=== PATIENT | female | born 2000 | race Caucasian/White ===

== ENCOUNTER 2022-10-01 10:30 | Outpatient (CLI) | payer OTHER ==
[2022-10-01 15:59] LABS: BILIRUBIN,URINE NEGATIVE (NEGATIVE); GLUCOSE, URINE (UA) NEGATIVE (NEGATIVE); KETONES,URINE (UA) NEGATIVE (NEGATIVE); LEUKOCYTE ESTERASE, URINE NEGATIVE (NEGATIVE); NITRITE,URINE NEGATIVE (NEGATIVE); OCCULT BLOOD,URINE NEGATIVE (NEGATIVE); PH,URINE 6.5 PH (5.0-7.5); PROTEIN,URINE NEGATIVE (NEGATIVE); UROBILINOGEN,URINE 0.2 (NORMAL) E.U./dL (NORMAL)
[2022-10-01 16:10] LABS: BACTERIA,URINE Few /HPF (None Seen); CLARITY,URINE CLEAR (CLEAR); RBC,URINE None Seen /HPF (0-5); SQUAMOUS EPITHELIAL CELL,UR MOD Squamous (<= Few); WBC,URINE 0-3 /HPF (0-5)
== END 2022-10-01 23:59 | disposition home or self-care (01) ==
LOC: LAB.WC 10:30
PROVIDERS: ATTEND Nurse Practitioner
DX: Z34.90 Encounter for supervision of normal pregnancy, unspecified, unspecified trimester (principal)
CPT/HCPCS: 81001; 87086

== ENCOUNTER 2022-10-09 10:02 | Outpatient (CLI) | payer OTHER ==
--- NOTE | 2022-10-09 16:39 | Ultrasound Report ---
PROCEDURE: OB First Trimester w/TV INDICATIONS: POSITIVE TEST OUTSIDE/PRIOR DATING DATA: Last menstrual period (LMP): 08/09/2022. LMP-based estimated date of delivery (MAYE): 05/16/2023. First dating scan (date and location): 10/09/2022. Estimated date of delivery (MAYE) from first dating scan: 05/13/2023. TECHNIQUE: Real-time scanning was performed of the fetus and maternal pelvic organs, with image documentation. Endovaginal scanning was also performed to better visualize the fetus and maternal ovaries. COMPARISON: None FINDINGS: A single living intrauterine gestation is present, with a heart rate of 178 bpm. [place]-rump harrison gth is 25 mm corresponding to a 9 week 1 day gestation. Measurement variability in dating: +/- 4 wee ks by LMP, +/- 7 days by mean sac diameter (use before 6 weeks gestation if crown-rump length not abl e to be measured), +/- 5 days by crown-rump length (6-12 weeks gestation). Maternal organs: Ovaries demonstrate a corpus cyst within the right ovary.. IMPRESSION: 1. Single living intrauterine gestation. Reviewed by: Marito Kelley MD on 10/09/2022 4:38 PM PST Approved by: Marito Kelley MD on 10/09/2022 4:38 PM PST Station ID: [id number]
== END 2022-10-09 10:03 | disposition home or self-care (01) ==
LOC: DI 10:02
PROVIDERS: ATTEND Nurse Practitioner
DX: Z34.91 Encounter for supervision of normal pregnancy, unspecified, first trimester (principal)

== ENCOUNTER 2022-10-20 07:39 | Outpatient (CLI) | payer OTHER ==
[2022-10-20 12:45] LABS: BASOPHILS # (AUTO) 0.1 10^3/uL (0.0-0.1); BASOPHILS % (AUTO) 0.6 %; EOSINOPHILS # (AUTO) 0.1 10^3/uL (0.0-0.7); EOSINOPHILS % (AUTO) 1.3 %; HCT - HEMATOCRIT 39.7 % (37.0-47.0); HGB - HEMOGLOBIN 13.1 g/dL (12.0-16.0); LYMPHOCYTES # (AUTO) 2.4 10^3/uL (1.5-3.5); LYMPHOCYTES % (AUTO) 24.8 %; MEAN CORPUSCULAR HEMOGLOBIN 28.8 pg (27.0-31.0); MEAN CORPUSCULAR VOLUME 87.3 fL (81.0-99.0); MEAN PLATELET VOLUME 10.7 fL (7.9-10.8); MONOCYTES # (AUTO) 0.7 10^3/uL (0.0-1.0); MONOCYTES % (AUTO) 6.7 %; NEUTROPHILS # (AUTO) 6.5 10^3/uL (1.5-6.6); NEUTROPHILS % (AUTO) 66.4 %; PLT - PLATELET COUNT 359 10^3/uL (130-450); RED BLOOD COUNT 4.55 10^6/uL (4.20-5.40); RED CELL DISTRIBUTION WIDTH 12.9 % (12.0-15.0); WHITE BLOOD COUNT 9.8 x10^3/uL (4.8-10.8)
[2022-10-21 06:10] LABS: HBsAG SCREEN Negative (Negative); RPR Non Reactive (Non Reactive)
[2022-10-21 14:08] LABS: VARICELLA-ZOSTER AB IGG 150 index (Immune >165)
[2022-10-22 02:07] LABS: HCV AB Non Reactive (Non Reactive)
[2022-10-22 04:09] LABS: HIV SCREEN 4TH GENERATION Non Reactive (Non Reactive)
== END 2022-10-20 07:40 | disposition home or self-care (01) ==
LOC: LAB.N 07:39
PROVIDERS: ATTEND Nurse Practitioner
DX: Z34.90 Encounter for supervision of normal pregnancy, unspecified, unspecified trimester (principal)
CPT/HCPCS: 36415; 85025; 86592; 86762; 86787; 86803; 86850; 86900; 86901; 87340; 87389

== ENCOUNTER 2022-10-23 08:00 | Outpatient (CLI) | payer OTHER ==
[2022-10-23 18:01] LABS: CHLAMYDIA TRACHOMATIS DNA NEGATIVE (NEGATIVE); NEISSERIA GONORRHOEAE DNA NEGATIVE (NEGATIVE); TRICHOMONAS VAGINALIS DNA NEGATIVE (NEGATIVE)
== END 2022-10-23 23:59 | disposition home or self-care (01) ==
LOC: LAB.WC 08:00
PROVIDERS: ATTEND Obstetrics & Gynecology
DX: Z11.3 Encounter for screening for infections with a predominantly sexual mode of transmission (principal)
CPT/HCPCS: 87491; 87591; 87661

== ENCOUNTER 2022-11-19 15:00 | Outpatient (CLI) | payer OTHER ==
--- NOTE | 2022-11-19 16:20 | Ultrasound Report ---
PROCEDURE: OB 14+ Weeks INDICATIONS: R93.89. Abnormal in office ultrasound. head appeared low by bedside ultrasound OUTSIDE/PRIOR DATING DATA: Last menstrual period (LMP): 08/09/2022. LMP-based estimated date of delivery (MAYE): 05/16/2023. First dating scan (date and location): 10/09/2022. Estimated date of delivery (MAYE) from first dating scan: 05/13/2023. TECHNIQUE: Real-time scanning was performed of the fetus, with image documentation and biometric measurements. Endovaginal scanning: Not performed COMPARISON: 10/09/2022 FINDINGS: General: A single living intrauterine gestation is present. Presentation: Breech Placenta: Placental position is anterior, without previa. Amniotic fluid index: Not documented heart rate: 157 beats per minute. Maternal cervical canal: 2.9 cm long; normal length is 2.5 cm or more. biometrics: Biparietal diameter: 2.9 cm, 15 weeks 2 days Head circumference: 10.7 cm, 15 weeks 1 day Abdominal circumference: 8.7 cm, 15 weeks 0 days Femur length: 1.4 cm, 14 weeks 1 day Estimated weight and percentile: 102 g, 39th percentile Measurement variability for biometric dating: +/- 10 days from 12-20 weeks gestation, +/- 2 weeks fro m 20-30 weeks gestation, +/- 3 weeks for 30 weeks gestation or later. IMPRESSION: Single living intrauterine in breech presentation. Reviewed by: Zaheer Sims MD on 11/19/2022 4:19 PM PDT Approved by: Zaheer Sims MD on 11/19/2022 4:19 PM PDT Station ID: [id number]
== END 2022-11-19 15:01 | disposition home or self-care (01) ==
LOC: DI 15:00
PROVIDERS: ATTEND Nurse Practitioner
DX: O32.1XX0 Maternal care for breech presentation, not applicable or unspecified (principal); Z3A.00 Weeks of gestation of pregnancy not specified

== ENCOUNTER 2022-12-29 14:46 | Outpatient (CLI) | payer OTHER ==
--- NOTE | 2022-12-30 12:30 | Ultrasound Report ---
PROCEDURE: OB Detailed Eval INDICATIONS: SUPERVISION OF OUTSIDE/PRIOR DATING DATA: Last menstrual period (LMP): 08/09/2022. LMP-based estimated date of delivery (MAYE): 05/16/2023. First dating scan (date and location): 10/09/2022. Estimated date of delivery (MAYE) from first dating scan: 05/13/2023. The below data below was generated using the sonographic MAYE of 05/13/2023 TECHNIQUE: Real-time scanning was performed of the fetus, with image documentation and biometric measurements. Endovaginal scanning: Not performed COMPARISON: 10/09/2022, 11/19/2022 FINDINGS: General: A single living intrauterine gestation is present. Presentation: Cephalic Placenta: Placental position is anterior, without previa. Amniotic fluid index: 13.3 cm, largest pocket 5.5 cm, normal for gestational age. heart rate: 169 beats per minute. Maternal cervical canal: Closed and 3.3 cm long; normal length is 2.5 cm or more. biometrics: Biparietal diameter: 5.0 cm, 21 weeks 1 day Head circumference: 18.1 cm, 20 weeks 3 days Abdominal circumference: 15.9 cm, 21 weeks 0 days Femur length: 3.3 cm, 20 weeks 2 days Estimated gestational age from initial scan: 20 weeks 5 days. Composite gestational age from present scan: 20 weeks 5 days Estimated weight and percentile: 371 g, 44th percentile Measurement variability in biometric dating: +/- 10 days from 12-20 weeks gestation, +/- 2 weeks from 20-30 weeks gestation, +/- 3 weeks at 30 weeks gestation or later. Anatomic survey: Neuro: Ventricles are normal at less than 10 mm. Cisterna magna is normal at 3-11 mm. 7 x 3 mm cho roid plexus cyst on the right. Cerebellum is normal in size and morphology. Nuchal skin fold: Normal at less than 6 mm between 14 and 20 weeks gestational age. Face: Nose and lips, facial profile are normal. Spine: No evidence for spina bifida. Heart: 4-chambered heart is present, with normal ventricular outflow tracts. Diaphragm: Diaphragm is intact. Stomach: Left-sided stomach is present. Kidneys: No hydronephrosis. Normal is less than 5 mm in 2nd trimester, less than 7 mm in 3rd trimester. Cord: 3 vessel cord has orthotopic insertion. Bladder: Normal in size. Extremities: All 4 extremities are visualized. IMPRESSION: 1. Single intrauterine with composite gestational age in good agreement with the sonographi lizzy assigned gestational age. 2. Symmetric growth and normal anatomy. 3. Incidental note made of a 7 mm ovoid right choroid plexus cyst. This is of likely no clinical sign ificance in the absence of other anomalies. Reviewed by: Dorina Ponce MD on 12/30/2022 12:28 PM PDT Approved by: Dorina Ponce MD on 12/30/2022 12:28 PM PDT Station ID: [id number]
== END 2022-12-29 14:47 | disposition home or self-care (01) ==
LOC: DI 14:46
PROVIDERS: ATTEND Nurse Practitioner
DX: Z34.92 Encounter for supervision of normal pregnancy, unspecified, second trimester (principal)

== ENCOUNTER 2023-01-14 14:32 | Outpatient (CLI) | payer OTHER ==
[2023-01-16 19:07] LABS: AFP MOM 2.16 (.); AFP VALUE 194.4 ng/mL (.); DIA MOM See interpretation. (.); DIA VALUE 427.63 pg/mL (.); DSR (BY AGE) 1 IN 1031 (.); DSR (SECOND TRIMESTER) 1 IN See interpretation. (.); GEST. AGE ON COLLECTION DATE 22.6 WEEKS (.); GESTAT. AGE METHOD EDD (.); HCG MOM See interpretation. (.); HCG VALUE 34091 mIU/mL (.); INSULIN DEP DIABETES No (.); MULTIPLE GESTATION No (.); OPEN SPINA BIFIDA RISK 1 IN 569 (.); RACE Caucasian (.); RESULTS Report (.); TEST RESULTS See interpretation. (.); TRISOMY 18 RISK See interpretation. (.); UE3 MOM See interpretation. (.); UE3 VALUE 2.95 ng/mL (.); WEIGHT 131 lbs (.)
== END 2023-01-14 14:33 | disposition home or self-care (01) ==
LOC: LAB 14:32
PROVIDERS: ATTEND Obstetrics & Gynecology
DX: Z34.02 Encounter for supervision of normal first pregnancy, second trimester (principal)
CPT/HCPCS: 36415; 81511

== ENCOUNTER 2023-02-20 19:34 | Outpatient (CLI) | payer OTHER ==
[2023-02-20 20:08] LABS: CREATININE,URINE 70.3 mg/dL; PROTEIN/CREATININE RATIO,URINE 0.2 (<=0.2)
[2023-02-20 21:05] LABS: HCT - HEMATOCRIT 36.3 % (37.0-47.0); HGB - HEMOGLOBIN 12.2 g/dL (12.0-16.0); MEAN CORPUSCULAR HEMOGLOBIN 29.8 pg (27.0-31.0); MEAN CORPUSCULAR HGB CONC 33.6 g/dL (32.0-36.0); MEAN CORPUSCULAR VOLUME 88.5 fL (81.0-99.0); MEAN PLATELET VOLUME 10.1 fL (7.9-10.8); RED BLOOD COUNT 4.1 10^6/uL (4.20-5.40); RED CELL DISTRIBUTION WIDTH 13.3 % (12.0-15.0); WHITE BLOOD COUNT 11.7 x10^3/uL (4.8-10.8)
[2023-02-20 21:28] LABS: ALBUMIN 3.5 g/dL (3.2-5.5); ALBUMIN/GLOBULIN RATIO 0.8 (1.0-2.2); BILIRUBIN,TOTAL 0.5 mg/dL (0.2-1.0); CALCIUM 8.9 mg/dL (8.5-10.3); CREATININE 0.7 mg/dL (0.4-1.0); POTASSIUM 3.2 mmol/L (3.5-5.0); TOTAL PROTEIN 7.7 g/dL (6.7-8.2); URIC ACID 4.5 mg/dL (2.6-7.2)
[2023-02-26 11:12] LABS: AFP MOM See interpretation. (.); AFP VALUE 411.4 ng/mL (.); DIA MOM See interpretation. (.); DIA VALUE 1732.19 pg/mL (.); DSR (BY AGE) 1 IN 1031 (.); DSR (SECOND TRIMESTER) 1 IN See interpretation. (.); GEST. AGE ON COLLECTION DATE 27.9 WEEKS (.); GESTAT. AGE METHOD EDD (.); HCG MOM See interpretation. (.); HCG VALUE 46364 mIU/mL (.); INSULIN DEP DIABETES No (.); MULTIPLE GESTATION No (.); OPEN SPINA BIFIDA RISK 1 IN See interpretation. (.); RACE Caucasian (.); RESULTS Report (.); TEST RESULTS See interpretation. (.); TRISOMY 18 (BY AGE) See interpretation. (.); TRISOMY 18 RISK See interpretation. (.); UE3 MOM See interpretation. (.); WEIGHT 131 lbs (.)
== END 2023-02-20 19:35 | disposition home or self-care (01) ==
LOC: LAB 19:34
PROVIDERS: ATTEND Nurse Practitioner
DX: O99.891 Other specified diseases and conditions complicating pregnancy (principal); M79.89 Other specified soft tissue disorders; Z36.0 Encounter for antenatal screening for chromosomal anomalies; Z3A.18 18 weeks gestation of pregnancy
CPT/HCPCS: 36415; 80053; 81511; 82570; 82950; 84156; 84550; 85027

== ENCOUNTER 2023-03-11 14:41 | Outpatient (CLI) | payer OTHER ==
[2023-03-11] MEDS ORDERED: NIFEdipine ER 30 MG TABLET PO SCH (15:00)
[2023-03-11 15:06] LABS: BASOPHILS % (AUTO) 0.2 %; EOSINOPHILS % (AUTO) 0.4 %; HCT - HEMATOCRIT 39.1 % (37.0-47.0); HGB - HEMOGLOBIN 12.9 g/dL (12.0-16.0); LYMPHOCYTES # (AUTO) 1.2 10^3/uL (1.5-3.5); MEAN CORPUSCULAR HEMOGLOBIN 29.8 pg (27.0-31.0); MEAN CORPUSCULAR VOLUME 90.3 fL (81.0-99.0); MEAN PLATELET VOLUME 10.6 fL (7.9-10.8); MONOCYTES # (AUTO) 0.7 10^3/uL (0.0-1.0); MONOCYTES % (AUTO) 7.8 %; NEUTROPHILS # (AUTO) 7.4 10^3/uL (1.5-6.6); NEUTROPHILS % (AUTO) 78.1 %; PLT - PLATELET COUNT 294 10^3/uL (130-450); RED BLOOD COUNT 4.33 10^6/uL (4.20-5.40); RED CELL DISTRIBUTION WIDTH 13.5 % (12.0-15.0); WHITE BLOOD COUNT 9.5 x10^3/uL (4.8-10.8)
[2023-03-11 15:14] LABS: CREATININE,URINE 64.1 mg/dL; PROTEIN/CREATININE RATIO,URINE 0.2 (<=0.2)
[2023-03-11 15:14] LABS: ALBUMIN 3.7 g/dL (3.2-5.5); ALBUMIN/GLOBULIN RATIO 1.1 (1.0-2.2); BILIRUBIN,TOTAL 0.3 mg/dL (0.2-1.0); CALCIUM 9.6 mg/dL (8.5-10.3); CREATININE 0.5 mg/dL (0.6-1.3); TOTAL PROTEIN 7.1 g/dL (6.4-8.9)
--- NOTE | 2023-03-11 18:23 | PROVIDER PROGRESS NOTE ---
- HPI Chief Complaint: Hypertension/PIH Current : Current EDU 05/16/23 Gestation 30 Weeks and 4 Days 1 Para 0 Vital Signs Temperature 98.1 F 03/11/23 14:48 Heart Rate 86 03/11/23 14:48 Respiratory Rate 16 03/11/23 14:48 Temperature 98.1 F 03/11/23 14:48 Heart Rate 86 03/11/23 14:48 Respiratory Rate 16 03/11/23 14:48 Blood Pressure 146/95 H 03/11/23 15:10 O2 Saturation If not protocol: Oxygen Flow, liters/minute - Procedures OB Procedure Performed: NST Diagnosis/Indication for NST: Gestational Hypertension NST Procedure: NST Procedure Start Date 03/11/23 Start Time 14:50 Vibroacoustic Stimulation Used No Patient States Movement Yes EFM: 150s, moderate variability, positive 15x15 accelerations, no decelerations [place]: No contractions NST reactive, Cat 1 Performed and read 03/11/23 Service Date of procedure: 03/11/23 - Plan Plan: 22yo at 30.4w sent from office visit for 140/90s. Denies symptoms. No OB concerns. Good movement. BP still elevated in triage. Labs obtained, benign. VS reviewed GEN: NAD CV: Regular rate Resp: Breathing unlabored Abd: soft, nt Ext: +1 edema NST reactive 22yo at 30.4 with gestational hypertension now - Labs benign - BP still elevated here. Nifedipine 30mg given in triage and tolerated well. Ordered at [facility] pharmacy. - Scheduled for NSTs/BPP weekly - Growth scan ordered - Follow up for next NST, discharge to home. Preeclampsia precautions reviewed.
[2023-03-11 18:31] VITALS: BP 138/94
== END 2023-03-11 16:45 | disposition home or self-care (01) ==
LOC: WFO 14:41 → FBP 14:43 → WFO 16:45
PROVIDERS: ATTEND Obstetrics & Gynecology
DX: O13.3 Gestational [pregnancy-induced] hypertension without significant proteinuria, third trimester (principal); Z3A.30 30 weeks gestation of pregnancy
CPT/HCPCS: 36415; 59025; 80053; 82570; 84156; 85025; 99215; A9270

== ENCOUNTER 2023-03-16 10:31 | Outpatient (CLI) | payer OTHER ==
[2023-03-16 12:30] VITALS: BP 140/94
--- NOTE | 2023-03-17 09:29 | PROCEDURE REPORT ---
- HPI Diagnosis/Indication for NST: Gestational Hypertension Current EDU 05/16/23 Gestation 31 Weeks and 2 Days 1 Para 0 Vital Signs Temperature 98.2 F 03/16/23 10:42 Heart Rate 99 03/16/23 10:42 Respiratory Rate 16 03/16/23 10:42 Blood Pressure 140/94 H 03/16/23 10:42 Temperature 98.2 F 03/16/23 10:42 Heart Rate 99 03/16/23 10:42 Respiratory Rate 16 03/16/23 10:42 Blood Pressure 133/99 H 03/16/23 11:00 O2 Saturation If not protocol: Oxygen Flow, liters/minute - NST Procedure NST Procedure Start Date 03/16/23 Start Time 10:39 Stop Time 11:12 Vibroacoustic Stimulation Used No Patient States Movement Yes EFM: 150s, moderate variability, 15x15 accelerations, no decelerations [place]: no contractions NST reactive/Cat 1 Performed and read 03/16/23 - Results and Plan Findings/Impression: 22yo at 31.2w presenting for scheduled NST for gestational hypertension - NST reactive - Continue nifedipine, reports feeling better since starting - Follow up as scheduled
== END 2023-03-16 11:30 | disposition home or self-care (01) ==
LOC: WFO 10:31 → FBP 10:32 → WFO 11:30
PROVIDERS: ATTEND Obstetrics & Gynecology
DX: O13.3 Gestational [pregnancy-induced] hypertension without significant proteinuria, third trimester (principal); Z3A.31 31 weeks gestation of pregnancy; Z79.899 Other long term (current) drug therapy
CPT/HCPCS: 59025

== ENCOUNTER 2023-03-19 10:32 | Outpatient (CLI) | payer OTHER ==
[2023-03-19 12:21] VITALS: BP 133/87; O2SAT 100
--- NOTE | 2023-03-19 12:24 | PROCEDURE REPORT ---
- HPI Diagnosis/Indication for NST: Gestational Hypertension Current EDU 05/16/23 Gestation 31 Weeks and 5 Days 1 Para 0 Vital Signs Temperature 98.4 F 03/19/23 10:50 Heart Rate 85 03/19/23 10:50 Respiratory Rate 16 03/19/23 10:50 Blood Pressure 133/88 H 03/19/23 10:50 Temperature 98.4 F 03/19/23 10:50 Heart Rate 85 03/19/23 10:50 Respiratory Rate 16 03/19/23 10:50 Blood Pressure 133/88 H 03/19/23 10:50 O2 Saturation If not protocol: Oxygen Flow, liters/minute - NST Procedure NST Procedure baseline 145 mod amina + A cells no D cells reactive reviewed preE precautions. will f/u on thursday. well informed. Start Date 03/19/23 Start Time 10:42 Stop Time 11:30 Vibroacoustic Stimulation Used No Patient States Movement Yes - Results and Plan Findings/Impression: reactive & reassuring Plan: D/C home with precautions reviewed. on nifedipine
== END 2023-03-19 12:00 | disposition home or self-care (01) ==
LOC: WFO 10:32 → FBP 10:33 → WFO 12:00
PROVIDERS: ATTEND Obstetrics & Gynecology
DX: O13.3 Gestational [pregnancy-induced] hypertension without significant proteinuria, third trimester (principal); Z3A.31 31 weeks gestation of pregnancy; Z79.899 Other long term (current) drug therapy
CPT/HCPCS: 59025

== ENCOUNTER 2023-03-23 08:01 | Outpatient (CLI) | payer OTHER ==
--- NOTE | 2023-03-23 08:36 | PROCEDURE REPORT ---
- NST Procedure NST Procedure Start Time 10:42 Stop Time 11:30
[2023-03-23 08:57] LABS: BASOPHILS % (AUTO) 0.4 %; EOSINOPHILS # (AUTO) 0.1 10^3/uL (0.0-0.7); HCT - HEMATOCRIT 37.6 % (37.0-47.0); HGB - HEMOGLOBIN 12.6 g/dL (12.0-16.0); LYMPHOCYTES # (AUTO) 1.3 10^3/uL (1.5-3.5); LYMPHOCYTES % (AUTO) 16.4 %; MEAN CORPUSCULAR HEMOGLOBIN 30.1 pg (27.0-31.0); MEAN CORPUSCULAR HGB CONC 33.5 g/dL (32.0-36.0); MEAN CORPUSCULAR VOLUME 89.7 fL (81.0-99.0); MEAN PLATELET VOLUME 11.2 fL (7.9-10.8); MONOCYTES # (AUTO) 0.7 10^3/uL (0.0-1.0); MONOCYTES % (AUTO) 8.7 %; NEUTROPHILS # (AUTO) 5.9 10^3/uL (1.5-6.6); PLT - PLATELET COUNT 254 10^3/uL (130-450); RED BLOOD COUNT 4.19 10^6/uL (4.20-5.40); RED CELL DISTRIBUTION WIDTH 13.4 % (12.0-15.0); WHITE BLOOD COUNT 8.1 x10^3/uL (4.8-10.8)
[2023-03-23 09:07] LABS: ALBUMIN 3.4 g/dL (3.2-5.5); ALBUMIN/GLOBULIN RATIO 1.1 (1.0-2.2); BILIRUBIN,TOTAL 0.3 mg/dL (0.2-1.0); CREATININE 0.5 mg/dL (0.6-1.3); POTASSIUM 3.6 mmol/L (3.5-4.5); TOTAL PROTEIN 6.5 g/dL (6.4-8.9)
== END 2023-03-23 08:02 | disposition home or self-care (01) ==
LOC: WFO 08:01
PROVIDERS: ATTEND Obstetrics & Gynecology
DX: Z53.9 Procedure and treatment not carried out, unspecified reason (principal)
CPT/HCPCS: 36415; 80053; 85025

== ENCOUNTER 2023-03-23 08:02 | Outpatient (CLI) | payer OTHER ==
--- NOTE | 2023-03-23 10:02 | PROCEDURE REPORT ---
- HPI Diagnosis/Indication for NST: Gestational Hypertension Current EDU 05/16/23 Gestation 32 Weeks and 2 Days 1 Para 0 Vital Signs Temperature 98.2 F 03/23/23 08:13 Heart Rate 94 03/23/23 08:13 Respiratory Rate 15 03/23/23 08:13 Blood Pressure 141/102 H 03/23/23 08:13 Temperature 98.2 F 03/23/23 08:13 Heart Rate 94 03/23/23 08:13 Respiratory Rate 15 03/23/23 08:13 Blood Pressure 139/101 H 03/23/23 09:30 O2 Saturation If not protocol: Oxygen Flow, liters/minute - NST Procedure NST Procedure Start Date 03/23/23 Start Time 08:10 Stop Time 11:30 Vibroacoustic Stimulation Used No Patient States Movement Yes - Results and Plan Plan: Patient is a 22-year-old G1, P0 at 32 weeks 2 days gestation here for scheduled NST. NST Performed 03/23/2023 NST Read 03/23/2023 FHT: 145 bpm baseline, moderate variability, accelerations present, no decelerations. Reactive NST [place]: Quiescent Diagnosis 32 weeks gestation Gestational hypertension. Labs not concerning for preeclampsia. Continue with twice-weekly NST.
[2023-03-23 10:39] LABS: CREATININE,URINE 50.2 mg/dL; PROTEIN/CREATININE RATIO,URINE 0.3 (<=0.2)
[2023-03-23 11:14] VITALS: BP 141/102
== END 2023-03-23 10:15 | disposition home or self-care (01) ==
LOC: WFO 08:02 → FBP 08:04 → WFO 10:15
PROVIDERS: ATTEND Obstetrics & Gynecology
DX: O13.3 Gestational [pregnancy-induced] hypertension without significant proteinuria, third trimester (principal); Z3A.32 32 weeks gestation of pregnancy
CPT/HCPCS: 36415; 59025; 80053; 82570; 84156; 85025

== ENCOUNTER 2023-03-25 14:37 | Outpatient (CLI) | payer OTHER ==
[2023-03-25 15:22] LABS: BASOPHILS % (AUTO) 0.3 %; EOSINOPHILS # (AUTO) 0.1 10^3/uL (0.0-0.7); EOSINOPHILS % (AUTO) 0.6 %; HCT - HEMATOCRIT 38.8 % (37.0-47.0); HGB - HEMOGLOBIN 12.9 g/dL (12.0-16.0); LYMPHOCYTES # (AUTO) 1.3 10^3/uL (1.5-3.5); MEAN CORPUSCULAR HEMOGLOBIN 30.1 pg (27.0-31.0); MEAN CORPUSCULAR HGB CONC 33.2 g/dL (32.0-36.0); MEAN CORPUSCULAR VOLUME 90.4 fL (81.0-99.0); MEAN PLATELET VOLUME 11.4 fL (7.9-10.8); MONOCYTES # (AUTO) 0.6 10^3/uL (0.0-1.0); MONOCYTES % (AUTO) 7.1 %; NEUTROPHILS # (AUTO) 6.7 10^3/uL (1.5-6.6); NEUTROPHILS % (AUTO) 76.7 %; PLT - PLATELET COUNT 275 10^3/uL (130-450); RED BLOOD COUNT 4.29 10^6/uL (4.20-5.40); RED CELL DISTRIBUTION WIDTH 13.4 % (12.0-15.0); WHITE BLOOD COUNT 8.7 x10^3/uL (4.8-10.8)
[2023-03-25 15:48] LABS: ALBUMIN 3.5 g/dL (3.2-5.5); ALBUMIN/GLOBULIN RATIO 1.1 (1.0-2.2); BILIRUBIN,TOTAL 0.3 mg/dL (0.2-1.0); CALCIUM 9.4 mg/dL (8.5-10.3); CREATININE 0.6 mg/dL (0.6-1.3); POTASSIUM 3.9 mmol/L (3.5-4.5); TOTAL PROTEIN 6.6 g/dL (6.4-8.9)
[2023-03-25 16:00] VITALS: BP 130/94
[2023-03-25 16:04] LABS: CREATININE,URINE 87.6 mg/dL; PROTEIN/CREATININE RATIO,URINE 0.2 (<=0.2)
--- NOTE | 2023-03-25 16:05 | PROVIDER PROGRESS NOTE ---
- HPI Chief Complaint: Hypertension/PIH Current : Current EDU 05/16/23 Gestation 32 Weeks and 4 Days 1 Para 0 Vital Signs Temperature 98.1 F 03/25/23 14:49 Heart Rate 95 03/25/23 14:49 Respiratory Rate 18 03/25/23 14:49 Blood Pressure 144/101 H 03/25/23 14:49 Temperature 98.1 F 03/25/23 14:49 Heart Rate 95 03/25/23 14:49 Respiratory Rate 18 03/25/23 14:49 Blood Pressure 130/94 H 03/25/23 15:58 O2 Saturation If not protocol: Oxygen Flow, liters/minute - Procedures NST Procedure: NST Procedure Start Date 03/25/23 Start Time 15:25 Stop Time 16:00 Vibroacoustic Stimulation Used No Patient States Movement Yes Service Date of procedure: 03/25/23 (Read 03/25/2023) - Plan Plan: Patient is a 22-year-old G1, P0 at 32 weeks 4 days gestation presenting to triage for evaluation for preeclampsia. She was sent from clinic today for elevated blood pressures. She has good movement, no leaking, no vaginal bleeding. She denies headache, right upper quadrant pain, changes in vision. Physical Exam Constitutional: alert, no acute distress, well hydrated, well developed, well nourished, appropriate dress. Cardiovascular: Regular rate and rhythm. Respiratory: no respiratory distress. Abdomen: nondistended, nontender, no guarding. Psych: affect and mood appropriate, normal interaction, good eye contact. FHT: 150 beats per baseline, moderate variability, accelerations present, no decelerations. Reactive NST [place]: Quiescent Assessment and plan 22-year-old G1, P0 at 32 weeks 4 days gestation with preeclampsia without severe features 1. Preeclampsia without severe features -Labs not concerning for preeclampsia worsening. In fact, her protein creatinine ratio is 0.2 today, lower than earlier. Blood pressure still remains elevated. Plan to increase nifedipine to 30 mg twice a day -Can skip NST tomorrow as she had one today. Set up already for twice weekly NSTs and once weekly BPP's. Will follow-up in clinic for evaluation. -Discussed preeclampsia precautions and signs of worsening disease. 2. 32 weeks gestation
== END 2023-03-25 16:30 | disposition home or self-care (01) ==
LOC: WFO 14:37 → FBP 14:38 → WFO 16:30
PROVIDERS: ATTEND Obstetrics & Gynecology
DX: O14.03 Mild to moderate pre-eclampsia, third trimester (principal); Z3A.32 32 weeks gestation of pregnancy
CPT/HCPCS: 36415; 59025; 80053; 82570; 84156; 85025; 99215

== ENCOUNTER 2023-03-31 08:13 | Outpatient (CLI) | payer OTHER ==
--- NOTE | 2023-03-31 10:13 | Ultrasound Report ---
PROCEDURE: OB Biophysical Profile INDICATIONS: GESTATIONAL HYPERTENSION OUTSIDE/PRIOR DATING DATA: Last menstrual period (LMP): 08/09/2022. LMP-based estimated date of delivery (MAYE): 05/16/2023. First dating scan (date and location): 10/09/2022. Estimated date of delivery (MAYE) from first dating scan: 05/13/2023. The below data below was generated using the ultrasound MAYE of 05/13/2023 TECHNIQUE: Real-time scanning was performed of the fetus, with image documentation and biometric alexis surements. Biophysical profile was also obtained. Endovaginal scanning: Not performed COMPARISON: 12/29/2022, 11/19/2022 FINDINGS: General: A single living intrauterine gestation is present. Presentation: Cephalic Placenta: Placental position is anterior, without previa. Amniotic fluid index: 14.1 cm, normal for gestational age. heart rate: 147 beats per minute. Maternal cervical canal not well visualized. biometrics: Biparietal diameter: 8.79 cm, 35 weeks 4 days Head circumference: 30.96 cm, 34 weeks 4 days Abdominal circumference: 29.5 cm, 33 weeks 4 days Femur length: 5.76 cm, 30 weeks 1 day Estimated gestational age from initial scan: 33 weeks 6 days Composite gestational age from present scan: 33 weeks 3 days Estimated weight and percentile: 2058.6 g, 16.7 percentile Measurement variability in biometric dating: +/- 10 days from 12-20 weeks gestation, +/- 2 weeks from 20-30 weeks gestation, +/- 3 weeks at 30 weeks gestation or later. Biophysical profile: Tone: 2 points. Movement: 2 points. Respiration: 2 points. Largest pocket of fluid: 2 points. Umbilical artery Doppler: Normal waveform. IMPRESSION: Single living intrauterine at 33 weeks 6 days, MAYE of 05/13/2023. Estimated weight of 2058.6 g, 16.7 percentile. Biophysical profile 8 of 8. Normal umbilical artery waveform. Reviewed by: Bryant Vinson on 03/31/2023 10:12 AM PDT Approved by: Bryant Vinson on 03/31/2023 10:12 AM PDT Station ID: [id number]
[2023-03-31 10:55] LABS: BASOPHILS % (AUTO) 0.2 %; EOSINOPHILS # (AUTO) 0.1 10^3/uL (0.0-0.7); EOSINOPHILS % (AUTO) 0.6 %; HCT - HEMATOCRIT 41.7 % (37.0-47.0); HGB - HEMOGLOBIN 13.8 g/dL (12.0-16.0); LYMPHOCYTES # (AUTO) 1.4 10^3/uL (1.5-3.5); LYMPHOCYTES % (AUTO) 14.6 %; MEAN CORPUSCULAR HEMOGLOBIN 29.9 pg (27.0-31.0); MEAN CORPUSCULAR HGB CONC 33.1 g/dL (32.0-36.0); MEAN CORPUSCULAR VOLUME 90.5 fL (81.0-99.0); MEAN PLATELET VOLUME 11.7 fL (7.9-10.8); MONOCYTES # (AUTO) 0.7 10^3/uL (0.0-1.0); MONOCYTES % (AUTO) 6.8 %; NEUTROPHILS # (AUTO) 7.6 10^3/uL (1.5-6.6); NEUTROPHILS % (AUTO) 77.4 %; PLT - PLATELET COUNT 268 10^3/uL (130-450); RED BLOOD COUNT 4.61 10^6/uL (4.20-5.40); RED CELL DISTRIBUTION WIDTH 13.3 % (12.0-15.0); WHITE BLOOD COUNT 9.8 x10^3/uL (4.8-10.8)
[2023-03-31 11:03] LABS: CREATININE,URINE 20.3 mg/dL; PROTEIN/CREATININE RATIO,URINE 0.3 (<=0.2)
[2023-03-31 11:13] LABS: ALBUMIN 3.8 g/dL (3.2-5.5); ALBUMIN/GLOBULIN RATIO 1.1 (1.0-2.2); BILIRUBIN,TOTAL 0.3 mg/dL (0.2-1.0); CALCIUM 9.7 mg/dL (8.5-10.3); CREATININE 0.6 mg/dL (0.6-1.3); POTASSIUM 3.8 mmol/L (3.5-4.5); TOTAL PROTEIN 7.4 g/dL (6.4-8.9); URIC ACID 3.9 mg/dL (2.3-6.6)
[2023-03-31 11:35] VITALS: BP 143/98
--- NOTE | 2023-03-31 11:42 | PROCEDURE REPORT ---
- HPI Diagnosis/Indication for NST: Gestational Hypertension Current EDU 05/16/23 Gestation 33 Weeks and 3 Days 1 Para 0 Vital Signs Temperature 98.1 F 03/31/23 09:58 Heart Rate 82 03/31/23 09:58 Respiratory Rate 16 03/31/23 09:58 Blood Pressure 153/107 H 03/31/23 09:58 Temperature 98.1 F 03/31/23 09:58 Heart Rate 82 03/31/23 09:58 Respiratory Rate 16 03/31/23 09:58 Blood Pressure 153/107 H 03/31/23 09:58 O2 Saturation If not protocol: Oxygen Flow, liters/minute - NST Procedure NST Procedure Start Date 03/31/23 Start Time 09:33 Stop Time 10:36 Vibroacoustic Stimulation Used No Patient States Movement Yes 33+3 weeks pre-eclampsia reactive NST - Results and Plan Plan: patient has pre-eclampsia precautions and follow up with office
== END 2023-03-31 11:00 | disposition home or self-care (01) ==
LOC: DI 08:13 → FBP 09:25 → DI 11:00
PROVIDERS: ATTEND Obstetrics & Gynecology Obstetrics
DX: O14.93 Unspecified pre-eclampsia, third trimester (principal); Z3A.33 33 weeks gestation of pregnancy; O26.843 Uterine size-date discrepancy, third trimester; O28.3 Abnormal ultrasonic finding on antenatal screening of mother
CPT/HCPCS: 36415; 59025; 80053; 82570; 83615; 84156; 84550; 85025; 99213; 99214

== ENCOUNTER 2023-03-31 08:13 | Outpatient (CLI) | payer OTHER ==
--- NOTE | 2023-04-01 10:47 | Ultrasound Report ---
PROCEDURE: OB F/U or Repeat INDICATIONS: UTERINE SIZE DATE DISCREPENCY OUTSIDE/PRIOR DATING DATA: Last menstrual period (LMP): 08/09/2022. LMP-based estimated date of delivery (MAYE): 05/16/2023. First dating scan (date and location): 10/09/2022. Estimated date of delivery (MAYE) from first dating scan: 05/13/2023. The below data below was generated using the working MAYE of 05/13/2023 TECHNIQUE: Real-time scanning was performed of the fetus, with image documentation and biometric measurements. Endovaginal scanning: Not performed. COMPARISON: OB ultrasound, 10/09/2022, 11/19/2022, 12/29/2022. FINDINGS: General: A single living intrauterine gestation is present. Presentation: Cephalic Placenta: Placental position is anterior, without previa. Amniotic fluid index: 14.1 cm with the largest pocket 4.6 cm. heart rate: 147 beats per minute. Maternal cervical canal: Closed but not well seen. biometrics: Biparietal diameter: 35 weeks 4 days Head circumference: 34 weeks 4 days Abdominal circumference: 33 weeks 4 days Femur length: 30 weeks 1 day Estimated gestational age from initial scan: 33 weeks 6 days Composite gestational age from present scan: 33 weeks 3 days Estimated weight and percentile: 2059.6 g; 17% for gestational age. Measurement variability in biometric dating: +/- 10 days from 12-20 weeks gestation, +/- 2 weeks from 20-30 weeks gestation, +/- 3 weeks at 30 weeks gestation or more. biophysical profile: 8 out 8 Tone: 2 points Movement: 2 points Respiration: 2 points Largest amniotic fluid pocket: 2 points Cord Doppler ultrasound: S/D ratio: At the placental insertion: 2.5. Mid portion: 2.6. At abdomen insertion: 6.9. IMPRESSION: 1. A single living IUP redemonstrated. There is appropriate interval growth. 2. weight 2059.6 g, 17% for gestational age. 3. Normal DARIANA. 4. biophysical profile score 8 out of 8. 5. Cord Doppler ultrasound showed elevated S/D ratio at the abdominal insertion, and normal S/D ratio at the placental insertion and midportion. Recommend repeat exam. Reviewed by: Meghan Jacques MD on 04/01/2023 10:46 AM PDT Approved by: Meghan Jacques MD on 04/01/2023 10:46 AM PDT Station ID: [id number]
== END 2023-03-31 08:14 | disposition home or self-care (01) ==
LOC: DI 08:13
PROVIDERS: ATTEND Obstetrics & Gynecology
DX: O26.843 Uterine size-date discrepancy, third trimester (principal); O16.3 Unspecified maternal hypertension, third trimester; O28.3 Abnormal ultrasonic finding on antenatal screening of mother; Z3A.33 33 weeks gestation of pregnancy

== ENCOUNTER 2023-04-03 11:08 | Outpatient (CLI) | payer OTHER ==
[2023-04-03] MEDS ORDERED: ACETAMINOPHEN 500 MG TABLET PO PRN (11:44)
--- NOTE | 2023-04-03 11:54 | PROVIDER PROGRESS NOTE ---
- HPI Chief Complaint: Hypertension/PIH Current : Current EDU 05/16/23 Gestation 33 Weeks and 6 Days 1 Para 0 Vital Signs Temperature 98.2 F 04/03/23 11:14 Heart Rate 94 04/03/23 11:14 Respiratory Rate 14 04/03/23 11:14 Blood Pressure 143/96 H 04/03/23 11:14 Temperature 98.2 F 04/03/23 11:14 Heart Rate 84 04/03/23 11:45 Respiratory Rate 16 04/03/23 11:30 Blood Pressure 144/105 H 04/03/23 11:45 O2 Saturation If not protocol: Oxygen Flow, liters/minute - Procedures OB Procedure Performed: NST Diagnosis/Indication for NST: Gestational Hypertension NST Procedure: NST Procedure Start Date 04/03/23 Start Time 11:18 Stop Time 10:36 Patient States Movement Yes Service Date of procedure: 04/03/23 (Read 04/03/23) - Plan Plan: Patient is a 22-year-old G1, P0 at 33 weeks 6 days gestation presenting to triage for scheduled NST. She has good movement, no leaking, no vaginal bleeding. She denies headache, right upper quadrant pain, changes in vision. She does have a right earache but is not taking thing for the pain. Unsure if this is annoyance from getting water in it. Physical Exam Constitutional: alert, no acute distress, well hydrated, well developed, well nourished, appropriate dress. Cardiovascular: Regular rate and rhythm. Respiratory: no respiratory distress. Abdomen: nondistended, nontender, no guarding. Psych: affect and mood appropriate, normal interaction, good eye contact. FHT: 150 beats per baseline, moderate variability, accelerations present, no decelerations. Reactive NST [place]: Quiescent Assessment and plan Preeclampsia -Blood pressure normalized after resting. Discussed increasing nifedipine to 60 in the morning and 30 in the evening. Has an upcoming appointment with [facility] due to early onset preeclampsia. We did discuss possibility of switching to labetalol as we can titrate this further, however given that she is 34 weeks, we may consider a move towards delivery if blood pressures become harder to control. Labs all still not concerning for severe disease. We will follow-up closely in clinic, NSTs, and with plan. Patient to contact us with any change in symptoms. Earache Mildly improved while waiting. Said she will take Tylenol at home and see if this improves.
[2023-04-03] MEDS ORDERED: NIFEdipine ER 30 MG TABLET PO SCH (12:00)
[2023-04-03 12:01] LABS: BASOPHILS % (AUTO) 0.3 %; EOSINOPHILS # (AUTO) 0.1 10^3/uL (0.0-0.7); EOSINOPHILS % (AUTO) 0.6 %; HCT - HEMATOCRIT 39.5 % (37.0-47.0); HGB - HEMOGLOBIN 13.1 g/dL (12.0-16.0); LYMPHOCYTES # (AUTO) 1.1 10^3/uL (1.5-3.5); LYMPHOCYTES % (AUTO) 12.1 %; MEAN CORPUSCULAR HEMOGLOBIN 29.8 pg (27.0-31.0); MEAN CORPUSCULAR HGB CONC 33.2 g/dL (32.0-36.0); MEAN PLATELET VOLUME 11.8 fL (7.9-10.8); MONOCYTES # (AUTO) 0.6 10^3/uL (0.0-1.0); MONOCYTES % (AUTO) 6.6 %; NEUTROPHILS # (AUTO) 7.1 10^3/uL (1.5-6.6); NEUTROPHILS % (AUTO) 80.1 %; PLT - PLATELET COUNT 244 10^3/uL (130-450); RED BLOOD COUNT 4.39 10^6/uL (4.20-5.40); RED CELL DISTRIBUTION WIDTH 13.2 % (12.0-15.0); WHITE BLOOD COUNT 8.9 x10^3/uL (4.8-10.8)
[2023-04-03 12:13] LABS: ALBUMIN 3.4 g/dL (3.2-5.5); ALBUMIN/GLOBULIN RATIO 1.1 (1.0-2.2); BILIRUBIN,TOTAL 0.2 mg/dL (0.2-1.0); CALCIUM 9.4 mg/dL (8.5-10.3); CREATININE 0.5 mg/dL (0.6-1.3); POTASSIUM 3.8 mmol/L (3.5-4.5); TOTAL PROTEIN 6.6 g/dL (6.4-8.9)
[2023-04-03 12:55] VITALS: BP 129/91
[2023-04-03 12:55] LABS: CREATININE,URINE 79.1 mg/dL; PROTEIN/CREATININE RATIO,URINE 0.2 (<=0.2)
== END 2023-04-03 13:10 | disposition home or self-care (01) ==
LOC: WFO 11:08 → FBP 11:09 → WFO 13:10
PROVIDERS: ATTEND Obstetrics & Gynecology
DX: O14.03 Mild to moderate pre-eclampsia, third trimester (principal); O99.891 Other specified diseases and conditions complicating pregnancy; H92.01 Otalgia, right ear; Z3A.33 33 weeks gestation of pregnancy
CPT/HCPCS: 36415; 59025; 80053; 82570; 83615; 84156; 85025; 99215

== ENCOUNTER 2023-04-06 15:06 | Outpatient (CLI) | payer OTHER ==
--- NOTE | 2023-04-06 17:29 | Ultrasound Report ---
PROCEDURE: OB Biophysical Profile INDICATIONS: GESTATIONAL HYPERTENSION OUTSIDE/PRIOR DATING DATA: Last menstrual period (LMP): 12/08/2021. LMP-based estimated date of delivery (MAYE): 05/16/2023. First dating scan (date and location): 03/31/2023. Estimated date of delivery (MAYE) from first dating scan: 05/13/2023. The below data below was generated using the ultrasound MAYE of 05/13/2023 TECHNIQUE: Real-time scanning was performed of the fetus, with image documentation. Biophysical pro file was also obtained. Spectral and Doppler evaluation of the umbilical artery was performed. Endovaginal scanning: Not performed COMPARISON: None. FINDINGS: General: A single living intrauterine gestation is present. Presentation: Cephalic Placenta: Placental position is anterior, without previa. Amniotic fluid index: 8.4 cm, 6.4% for gestational age. heart rate: 152 beats per minute. Maternal cervical canal: Not well visualized Biophysical profile: Tone: 2 points. Movement: 2 points. Respiration: 2 points. Largest pocket of fluid: 2 points. Umbilical artery Doppler: Normal waveform. IMPRESSION: Single living intrauterine at 34 weeks 5 days, MAYE of 05/13/2023. BPP 8 of 8. Normal umbilical artery waveform. Reviewed by: Bryant Vinson on 04/06/2023 5:28 PM PDT Approved by: Bryant Vnison on 04/06/2023 5:28 PM PDT Station ID: [id number]
== END 2023-04-06 15:07 | disposition home or self-care (01) ==
LOC: DI 15:06
PROVIDERS: ATTEND Obstetrics & Gynecology
DX: O13.3 Gestational [pregnancy-induced] hypertension without significant proteinuria, third trimester (principal); Z3A.34 34 weeks gestation of pregnancy

== ENCOUNTER 2023-04-06 15:57 | Outpatient (CLI) | payer OTHER ==
[2023-04-06] MEDS ORDERED: LABETALOL 100 MG TABLET PO SCH (17:00)
--- NOTE | 2023-04-06 17:52 | PROCEDURE REPORT ---
- HPI Diagnosis/Indication for NST: Gestational Hypertension Vital Signs Temperature 98.2 F 04/06/23 16:08 Heart Rate 95 04/06/23 16:08 Respiratory Rate 16 04/06/23 16:08 Blood Pressure 148/107 H 04/06/23 16:08 Temperature 98.2 F 04/06/23 16:08 Heart Rate 95 04/06/23 16:08 Respiratory Rate 16 04/06/23 16:08 Blood Pressure 137/96 H 04/06/23 16:29 O2 Saturation If not protocol: Oxygen Flow, liters/minute - NST Procedure NST Procedure Start Time 11:18 Stop Time 11:57 EFM: 140s, moderate variability, 15x15 accelerations, no decelerations [place]: irregular contractions NST reactive/Cat 1 Performed and read 04/06/23 - Results and Plan Plan: 22yo at 34.2w presenting for scheduled NST for GHTN - Increase nifedipine to 60mg BID, and labetalol 300mg BID added - M referral is placed, advised patient to call tomorrow morning to schedule her appointment - Follow up 2 days for NST as she is unable to come . Labs next NST
[2023-04-06 18:06] VITALS: BP 148/107
== END 2023-04-06 17:00 | disposition home or self-care (01) ==
LOC: WFO 15:57 → FBP 15:58 → WFO 17:00
PROVIDERS: ATTEND Obstetrics & Gynecology
DX: O13.3 Gestational [pregnancy-induced] hypertension without significant proteinuria, third trimester (principal); Z79.899 Other long term (current) drug therapy; Z3A.34 34 weeks gestation of pregnancy
CPT/HCPCS: 59025; 76819; 99215; A9270

== ENCOUNTER 2023-04-08 12:56 | Outpatient (CLI) | payer OTHER ==
[2023-04-08 13:22] VITALS: BP 130/85
[2023-04-08 13:23] LABS: BASOPHILS % (AUTO) 0.3 %; EOSINOPHILS % (AUTO) 0.2 %; HCT - HEMATOCRIT 39.3 % (37.0-47.0); LYMPHOCYTES # (AUTO) 1.1 10^3/uL (1.5-3.5); LYMPHOCYTES % (AUTO) 11.8 %; MEAN CORPUSCULAR HEMOGLOBIN 29.9 pg (27.0-31.0); MEAN CORPUSCULAR HGB CONC 33.1 g/dL (32.0-36.0); MEAN CORPUSCULAR VOLUME 90.3 fL (81.0-99.0); MEAN PLATELET VOLUME 11.7 fL (7.9-10.8); MONOCYTES # (AUTO) 0.7 10^3/uL (0.0-1.0); MONOCYTES % (AUTO) 7.1 %; NEUTROPHILS # (AUTO) 7.6 10^3/uL (1.5-6.6); NEUTROPHILS % (AUTO) 80.2 %; PLT - PLATELET COUNT 262 10^3/uL (130-450); RED BLOOD COUNT 4.35 10^6/uL (4.20-5.40); WHITE BLOOD COUNT 9.4 x10^3/uL (4.8-10.8)
[2023-04-08 13:43] LABS: ALBUMIN 3.4 g/dL (3.2-5.5); ALBUMIN/GLOBULIN RATIO 1.1 (1.0-2.2); BILIRUBIN,TOTAL 0.2 mg/dL (0.2-1.0); CALCIUM 9.7 mg/dL (8.5-10.3); CREATININE 0.6 mg/dL (0.6-1.3); POTASSIUM 4.4 mmol/L (3.5-4.5); TOTAL PROTEIN 6.4 g/dL (6.4-8.9)
[2023-04-08 14:15] LABS: PROTEIN/CREATININE RATIO,URINE 0.3 (<=0.2)
--- NOTE | 2023-04-08 16:24 | PROCEDURE REPORT ---
- HPI Diagnosis/Indication for NST: Gestational Hypertension Current EDU 05/16/23 Gestation 34 Weeks and 4 Days 1 Para 0 Vital Signs Temperature 98.4 F 04/08/23 13:07 Heart Rate 91 04/08/23 13:07 Respiratory Rate 16 04/08/23 13:07 Blood Pressure 132/92 H 04/08/23 13:07 Temperature 98.4 F 04/08/23 13:07 Heart Rate 86 04/08/23 13:20 Respiratory Rate 16 04/08/23 13:07 Blood Pressure 130/85 H 04/08/23 13:20 O2 Saturation If not protocol: Oxygen Flow, liters/minute - NST Procedure NST Procedure Start Date 04/08/23 Start Time 13:04 Stop Time 13:29 Vibroacoustic Stimulation Used No Patient States Movement Yes EFM: 140s, moderate variability, positive 15x15 accelerations, no decelerations [place]: no contractions NST reactive/Cat 1 Performed and read 04/08/23 - Results and Plan Findings/Impression: 22yo at 34.4w presenting for scheduled NST for preeclampsia - NST reactive - Continue nifedipine 60mg BID and labetalol 300mg BID, better controlled now - MFM 04/13/23, consult and US and NST - Resume APFT next week after MFM
== END 2023-04-08 13:42 | disposition home or self-care (01) ==
LOC: WFO 12:56 → FBP 13:04 → WFO 13:42
PROVIDERS: ATTEND Obstetrics & Gynecology
DX: O14.93 Unspecified pre-eclampsia, third trimester (principal); Z3A.34 34 weeks gestation of pregnancy; Z79.899 Other long term (current) drug therapy
CPT/HCPCS: 36415; 59025; 80053; 82570; 84156; 85025; 99213

== ENCOUNTER 2023-04-20 12:28 | Outpatient (CLI) | payer OTHER ==
[2023-04-20 12:59] VITALS: BP 129/89
--- NOTE | 2023-04-20 13:06 | PROCEDURE REPORT ---
- HPI Diagnosis/Indication for NST: Gestational Hypertension - NST Procedure NST Procedure Start Time 12:11 Stop Time 12:44 - Results and Plan Plan: Patient is a 22-year-old G1, P0 at 36 weeks gestation here for scheduled NST. NST Performed 04/20/2023 NST Read 04/20/2023 FHT: 145 bpm baseline, moderate variability, accelerations present, no decelerations. Reactive NST [place]: 6 to 7 minutes, mild Diagnosis 36 weeks gestation Gestational hypertension Continue with twice-weekly NST.
== END 2023-04-20 14:00 | disposition home or self-care (01) ==
LOC: WFO 12:28 → FBP 12:29 → WFO 14:00
PROVIDERS: ATTEND Obstetrics & Gynecology
DX: O13.3 Gestational [pregnancy-induced] hypertension without significant proteinuria, third trimester (principal); Z3A.36 36 weeks gestation of pregnancy
CPT/HCPCS: 59025; 87797

== ENCOUNTER 2023-06-29 13:17 | Outpatient (CLI) | payer OTHER ==
--- NOTE | 2023-06-30 16:14 | Ultrasound Report ---
LIMITED ULTRASOUND OF LEFT BREAST: 06/29/2023 CLINICAL: Palpable left breast lump. No prior exams were available for comparison. Color flow ultrasound of the left breast 8-9 o'clock region was performed. Byrd scale images of the real-time examination were reviewed. There is a 1.6 cm x 1.0 cm x 1.6 cm oval mass with a circumscribed margin in the left breast at 8 o'c lock, 6 cm from the nipple. This oval mass is of mixed echogenicity with posterior acoustic enhancem ent. This correlates as palpated. IMPRESSION: PROBABLY BENIGN Left breast 1.6 cm oval circumscribed mass at 8 o'clock corresponding to area of palpable concern. Usama bello is currently lactating and finding may represent a galactocele and is probably benign. Recommen d a follow-up ultrasound in 6 months is recommended to demonstrate stability. Findings and recommendations were conveyed to the patient during today's evaluation. Patient was inst ructed to return sooner if there is significant growth or other concerning symptoms in the interim. This exam was interpreted at Station ID: [id number]. Electronically Signed By: Caryn Garza M.D., PH.D eb/:06/29/2023 14:18:23 Ultrasound BI-RADS: 3 Probably benign BI-RADS CATEGORY: (3) - 3 Ultrasound [id number] 6 month follow-up LATERALITY: (B)
== END 2023-06-29 13:18 | disposition home or self-care (01) ==
LOC: DI 13:17
PROVIDERS: ATTEND Obstetrics & Gynecology
DX: N63.23 Unspecified lump in the left breast, lower outer quadrant (principal)

== ENCOUNTER 2024-02-28 19:40 | Emergency (ER) | payer OTHER, MEDICAID ==
[2024-02-28 19:59] VITALS: O2SAT 100
--- NOTE | 2024-02-28 21:54 | ED Physician Documentation ---
History of Present Illness - Stated complaint Stated Complaint: HEART PALP,COUGH,SOA - Chief complaint Chief Complaint: Cardiac - History obtained from History obtained from: Patient - Additonal information Additional information: The patient comes to the emergency department chief complaint of palpitations on and off for the last 4 days. She states that she just feels a big beat that is high up in her chest when it happens. Sometimes she will have them frequently for about 10 minutes. She denies any syncope or near syncope with this. No chest pain. No shortness of breath. She states that she actually feels better since coming here to our cool air in the emergency department. She states it has been very hot and they are housing and they are not allowed to have air conditioners. She also notes that she has a 19-sovzo-ios and she has not been sleeping well since having the baby and that the baby wakes up at night. Sometimes she states that she wakes up even when the baby has not awakened. Patient does note that she is able to go back to sleep fairly easily most of the time but that her sleep is interrupted most nights. The patient denies any particular stresses. She has not had any GI illnesses recently. She does not have a known history of thyroid abnormalities. She did have -induced hypertension and preeclampsia during her . She is not currently having any palpitation sensation. PD PAST MEDICAL HISTORY - Past Medical History Past Medical History: Yes Cardiovascular: Hypertension Respiratory: None Neuro: Headaches Endocrine/Autoimmune: None GI: None : None Psych: None Derm: None - Past Surgical History Past Surgical History: No - Allergies Allergies/Adverse Reactions: Allergies Allergy/AdvReac Type Severity Reaction Status Date / Time No Known Drug Allergies Allergy Verified 02/28/24 20:46 - Social History Does the pt smoke?: No Smoking Status: Never smoker Does the pt drink ETOH?: No Does the pt have substance abuse?: No - Immunizations Immunizations are current?: Yes - POLST Patient has POLST: No PD ED PE NORMAL - Vitals Vital signs reviewed: Yes - General General: Alert and oriented X 3, No acute distress, Well developed/nourished - HEENT HEENT: Atraumatic, PERRL, EOMI, Moist mucous membranes - Neck Neck: Supple, no meningeal sign - Cardiac Cardiac: RRR, No murmur, Strong equal pulses - Respiratory Respiratory: No respiratory distress, Clear bilaterally - Derm Derm: Normal color, Warm and dry, No rash - Extremities Extremities: No deformity - Neuro Neuro: Alert and oriented X 3 - Psych Psych: Normal mood, Normal affect Results - Vitals Vitals: Vital Signs - 24 hr 02/28/24 19:43 Temperature 36.8 C Heart Rate 78 Respiratory 16 Rate Blood Pressure 160/100 H O2 Saturation 100 Oxygen O2 Source Room air - EKG (time done) 1947 EKG releavant findings:: EKG personally interpreted by author of this note. Relevant findings are: Rate: Rate (enter#) (80) Rhythm: NSR [place]: Normal Intervals: Normal [place] QRS: Normal Ischemia: Normal ST segments Compare to prior EKG: Old EKG unavailable Computer interpretation: Agree with computer PD Medical Decision Making - ED course Complexity details: reviewed results, re-evaluated patient, considered differential, d/w patient ED course: The patient's EKG showed normal sinus rhythm and her cardiac exam was normal. She was able to show me a rhythm strip from her phone and this did show a single PVC. We discussed PVCs, some of their causes, and the generally benign nature of these palpitations. We have also discussed some of the possible areas for concern including extremely frequent or unbroken PVCs, which would by definition be V. tach, or also including syncope or near syncope in association with the PVCs.The patient is stable for discharge home. We have drawn labs and will notify her of any concerning abnormalities. Discussed the usual indications for return. Departure - Departure Disposition: 01 Home, Self Care Clinical Impression: Palpitations with regular cardiac rhythm, PVCs (premature ventricular contractions) Condition: Stable Instructions: ED Palpitations, Premature Ventricular Contract About Comments: The rhythm strip on your phone demonstrates a single PVC or premature ventricular complex. This is a type of beat that is generated outside your heart's normal system of nerves that since signals for the heart. Because of the less efficient nerve pathway, the PVCs are generally slightly longer beats and can feel somewhat clumsy in the chest when the beat happens. In general, these are benign, but can be bothersome when there are a number of them in close succession. It is important that you follow up in primary care and get establis hed. In general, the approach to PVCs and otherwise young healthy patients is to eliminate possible factors can be contributing, such as stress, lack of sleep, and use of stimulating substances like caffeine. Please also be sure that you get plenty of water to drink. If you are noticing that you are having chest pain or that you are fainting or nearly fainting with the palpitations, then you need to be reevaluated more urgently. Otherwise, you should talk to your doctor about possibly having an event monitor done where you have a continuous monitor 24/ for a period of time to see how often you are having these beats. Your EKG looks great today. We have drawn some labs which are pending at this time. We will notify you at home of any significant abnormalities but you can also go to our hospital website at [email or web address], click on the "my [email or web address]" tab, and sign up for the patient portal to review results yourself.
[2024-02-28 22:11] LABS: BASOPHILS # (AUTO) 0.1 10^3/uL (0.0-0.1); BASOPHILS % (AUTO) 0.5 %; EOSINOPHILS # (AUTO) 0.2 10^3/uL (0.0-0.7); EOSINOPHILS % (AUTO) 1.7 %; HGB - HEMOGLOBIN 13.4 g/dL (12.0-16.0); LYMPHOCYTES # (AUTO) 2.9 10^3/uL (1.5-3.5); LYMPHOCYTES % (AUTO) 24.9 %; MEAN CORPUSCULAR HGB CONC 31.9 g/dL (32.0-36.0); MEAN CORPUSCULAR VOLUME 87.7 fL (81.0-99.0); MEAN PLATELET VOLUME 9.7 fL (7.9-10.8); MONOCYTES # (AUTO) 0.7 10^3/uL (0.0-1.0); MONOCYTES % (AUTO) 5.8 %; NEUTROPHILS # (AUTO) 7.9 10^3/uL (1.5-6.6); NEUTROPHILS % (AUTO) 66.9 %; PLT - PLATELET COUNT 381 10^3/uL (130-450); RED BLOOD COUNT 4.79 10^6/uL (4.20-5.40); RED CELL DISTRIBUTION WIDTH 12.4 % (12.0-15.0); WHITE BLOOD COUNT 11.8 x10^3/uL (4.8-10.8)
[2024-02-28 22:18] VITALS: BP 138/94
[2024-02-28 22:27] LABS: ALBUMIN 5.2 g/dL (3.2-5.5); ALBUMIN/GLOBULIN RATIO 1.4 (1.0-2.2); BILIRUBIN,TOTAL 0.3 mg/dL (0.2-1.0); CALCIUM 10.2 mg/dL (8.5-10.3); CREATININE 0.6 mg/dL (0.6-1.3); POTASSIUM 3.7 mmol/L (3.5-4.5)
[2024-02-28 22:41] LABS: THYROID STIMULATING HORMONE 3.38 uIU/mL (0.34-5.60)
== END 2024-02-28 22:16 | disposition home or self-care (01) ==
LOC: ED 19:40
DX: R00.2 Palpitations (principal); I49.3 Ventricular premature depolarization
CPT/HCPCS: 36415; 80053; 83690; 84443; 85025; 93005; 99283